=== PATIENT | female | born 1995 | race Caucasian/White ===

== ENCOUNTER → 2019-02-06 | Outpatient (CLI) | payer OTHER ==
--- NOTE | 2019-02-06 13:48 | KCIC ---
BREAST BILATERAL Clinical Indication: 23-year-old female with bilateral breast pain. Patient stopped breast-feeding 9 months ago. Family history of breast cancer. Comparison: None. TECHNIQUE: Real-time ultrasound imaging of the right and left breast is performed in all 4 quadrants, retroareolar, and in the axilla. Findings: In the right breast 4:00 position 6 cm from the nipple there is a well-circumscribed, hypoechoic, parallel mass measuring 1.3 x 0.4 x 0.9 cm. There is posterior acoustic enhancement. Color Doppler demonstrates blood flow at one of the margins. Mass is likely a fibroadenoma. No other focal finding is seen in the right breast. There is dense fibroglandular tissue. No abnormal right axillary lymph nodes. There is dense fibroglandular tissue in the left breast. No solid mass or architectural distortion is identified. There is no abnormal left axillary lymph node. IMPRESSION: 1. There is a benign-appearing mass in the right breast 4:00 position 6 cm from the nipple that is probably a fibroadenoma. 2. Recommend six-month follow-up right breast ultrasound to assess stability. 3. BI-RADS category 3, probably benign. Electronically signed by: Roman Serrano MD (02/06/2019 1:45 PM) [id number]
== END | disposition home or self-care (01) ==
LOC: KCIC US 12:24
PROVIDERS: ATTEND Family Medicine
DX: N63.14 Unspecified lump in the right breast, lower inner quadrant (principal); Z80.3 Family history of malignant neoplasm of breast
CPT/HCPCS: 76641